=== PATIENT | male | born 1955 | race Caucasian/White ===

== ENCOUNTER → 2018-08-31 | Outpatient (CLI) | payer OTHER ==
[~2018-08-31] MED LIST: AMLO1CAP10 PO; ATOR20TA86 PO; MULT-658 PO; PROB500T22 PO; TEST5GEL TP; atorvastatin PO
[2018-08-31 14:03] LABS: MICROSCOPIC NOT IND
[2018-08-31 14:05] LABS: BASOPHILS # (AUTO) 0.09 x10^3/uL (0-0.1); BASOPHILS % (AUTO) 1 % (0-1); EOSINOPHILS # (AUTO) 0.11 x10^3/uL (0-0.4); EOSINOPHILS % (AUTO) 2 % (1-7); LYMPHOCYTES # (AUTO) 1.35 x10^3/uL (1-3.4); LYMPHOCYTES % (AUTO) 21 % (22-44); MD NO; MEAN CORPUSCULAR HEMOGLOBIN 33.2 pg (27.5-34.5); MEAN CORPUSCULAR HGB CONC 34.4 g/dL (33.2-36.2); MEAN CORPUSCULAR VOLUME 96.4 fL (81-97); MEAN PLATELET VOLUME 8.1 fL (7.4-10.4); MONOCYTES # (AUTO) 0.82 x10^3/uL (0.2-0.8); MONOCYTES % (AUTO) 12 % (2-9); NEUTROPHILS # (AUTO) 4.21 x10^3/uL (1.8-6.8); NEUTROPHILS % (AUTO) 64 % (42-75); PLATELET COUNT 231 x10^3/uL (130-400); RED BLOOD COUNT 5.55 x10^6/uL (4.38-5.82); RED CELL DISTRIBUTION WIDTH 14.4 % (9.4-14.8)
[2018-08-31 14:06] LABS: INTERNATIONAL NORMALIZED RATIO 1.02 (0.93-1.1); PROTHROMBIN TIME 10.7 Seconds (9.6-11.5)
[2018-08-31 14:09] LABS: ALANINE AMINOTRANSFERASE 54 U/L (12-78); ALBUMIN 3.9 g/dL (3.4-5.0); ANION GAP 6 mmol/L (5-15); CALCIUM 9.4 mg/dL (8.5-10.1); CHLORIDE 107 mmol/L (98-107); CREATININE 1.27 mg/dL (0.7-1.3)
[2018-08-31 14:11] LABS: ALKALINE PHOSPHATASE 77 U/L (45-117); BILIRUBIN,TOTAL 0.7 mg/dL (0.2-1.0); TOTAL PROTEIN 7.5 g/dL (6.4-8.2)
[2018-08-31 14:34] LABS: CULTURE INDICATED? NO
== END | disposition home or self-care (01) ==
LOC: STAR 12:45
PROVIDERS: ATTEND Orthopaedic Surgery Orthopaedic Surgery of the Spine
DX: Z01.818 Encounter for other preprocedural examination (principal); I44.4 Left anterior fascicular block; M48.061 Spinal stenosis, lumbar region without neurogenic claudication
CPT/HCPCS: 36415; 71046; 80053; 81003; 85025; 85610; 85730; 93005

== ENCOUNTER 2018-09-06 08:56 | Day surgery (SDC) | payer OTHER ==
[~2018-09-06] VITALS: Ht 188 cm; Wt 99.2 kg
[~2018-09-06 08:56] MED LIST changes: -ATOR20TA86 PO; +BACITRACIN 50,000 UNIT ONE; +EPINEPHRINE 1 MG/ML, 1ML ONE; +LIDOCAINE 1%, 20ML ONE; +THROMBIN 20,000 UNIT VIAL TP ONE; +VANCOMYCIN 1,000 MG ONE
[2018-09-06] MEDS ORDERED: ATOR20TA86 PO (09:32)
[2018-09-06] MEDS ORDERED: MIDAZOLAM 1 MG/ML, 2ML ONE (09:48)
[2018-09-06] MEDS ORDERED: FENTANYL PF 250 MCG/5ML ONE (09:48)
[2018-09-06] MEDS ORDERED: PROPOFOL 10 MG/ML, 20ML ONE (09:49)
[2018-09-06] MEDS ORDERED: DEXAMETHASONE 4 MG/ML, 1ML ONE (09:49)
[2018-09-06] MEDS ORDERED: CEFAZOLIN 1,000 MG ONE (09:49)
[2018-09-06] MEDS ORDERED: ONDANSETRON 2MG/ML, 2ML ONE (09:49)
[2018-09-06] MEDS ORDERED: ROCURONIUM 10MG/ML,5ML ONE (09:49)
[2018-09-06] MEDS ORDERED: LIDOCAINE-MPF 2% ,5ML ONE (09:49)
[2018-09-06] MEDS ORDERED: WATER-INJECTION,STERILE 10 ML IV ONE (09:49)
[2018-09-06] MEDS ORDERED: LACTATED RINGERS 1,000 ML IV SCH (09:52)
[2018-09-06] MEDS ORDERED: PROMETHAZINE 25 MG/ML, 1ML IV PRN (10:30)
[2018-09-06] MEDS ORDERED: MEPERIDINE/PF 25MG/0.5ML IVPush PRN (10:30)
[2018-09-06] MEDS ORDERED: DIAZEPAM 5 MG/ML, 2ML IVPush PRN (10:30)
[2018-09-06] MEDS ORDERED: HALOPERIDOL 5 MG/ML IV PRN (10:30)
[2018-09-06] MEDS ORDERED: KETAMINE 10 MG/ML, 20ML ONE (10:30)
[2018-09-06] MEDS ORDERED: SUGAMMADEX 200 MG/2 ML IVPush ONE (10:30)
[2018-09-06] MEDS ORDERED: HYDROmorphone 2 MG/ML, 1ML IVPush PRN (10:30)
[2018-09-06] MEDS ORDERED: FENTANYL PF 100 MCG/2ML IV PRN (10:30)
[2018-09-06] MEDS ORDERED: hydrALAzine 20 MG/ML, 1ML IV PRN (10:30)
[2018-09-06] MEDS ORDERED: OXYcodone 5 MG/5 ML ORAL.SOL UDC PO PRN (10:30)
[2018-09-06] MEDS ORDERED: ACETAMINOPHEN 325 MG TABLET PO PRN (10:30)
[2018-09-06] MEDS ORDERED: BUPIVACAINE/PF 0.25% ONE (10:40)
[2018-09-06] MEDS ORDERED: LIDOCAINE/PF 0.5% ,50ML ONE (10:40)
[2018-09-06] MEDS ORDERED: FENTANYL PF 100 MCG/2ML ONE (12:30)
[2018-09-06] MEDS ORDERED: OXYcodone 5 MG/5 ML ORAL.SOL UDC ONE (12:30)
== END 2018-09-06 15:22 | disposition home or self-care (01) ==
LOC: OUT 08:56
PROVIDERS: ATTEND Orthopaedic Surgery Orthopaedic Surgery of the Spine
DX: M48.061 Spinal stenosis, lumbar region without neurogenic claudication (principal); M54.16 Radiculopathy, lumbar region; I10 Essential (primary) hypertension; E78.5 Hyperlipidemia, unspecified
CPT/HCPCS: 63047; 72100; J0171; J0690; J1100; J2001; J2250; J2405; J2704; J3010; J3370; J7120; J3490